=== PATIENT | female | born 1935 | race Caucasian/White ===

== ENCOUNTER 2018-09-26 10:33 | Observation (INO) | payer OTHER ==
[~2018-09-26] VITALS: Ht 152.4 cm; Wt 53.0 kg
[2018-09-26] MEDS ORDERED: GLIP5TAB13 ORAL (11:43)
[2018-09-26] MEDS ORDERED: ATOR10TA65 ORAL (11:43)
[2018-09-26] MEDS ORDERED: AMLO-145 ORAL (11:43)
[2018-09-26] MEDS ORDERED: ASPI-1044 ORAL (11:43)
[2018-09-26] MEDS ORDERED: ALEN70TA5 ORAL (11:43)
[2018-09-26] MEDS ORDERED: LOSA100T15 ORAL (11:43)
--- NOTE | 2018-09-26 12:58 | ERD ---
ER Documentation Chief Complaint Chief Complaint sent by pmd for new onset of a-fib, asymptomatic HPI 83-year-old female who was sent by primary care physician's office found to have new onset atrial fibrillation versus atrial flutter. Patient states that she was in a routine visit for new initiation of primary care provider. The patient had an EKG that showed evidence of atrial flutter. Patient was asymptomatic at the time. Patient has described some palpitations over the last several weeks. Patient denies any fevers chills chest pain or shortness of breath, no pleuritic pain. Patient is asymptomatic currently. History provided and assisted by granddaughter. ROS All systems reviewed and are negative except as per history of present illness. Medications Home Meds Reported Medications Glipizide* (Glipizide*) 5 Mg Tablet, 1 TAB ORAL BID 09/26/18 Alendronate Sodium* (Fosamax*) 70 Mg Tablet, 1 TAB ORAL WEEKLY ON Sundays09/26/18 Losartan Potassium* (Losartan Potassium*) 100 Mg Tablet, 1 TAB ORAL DAILY 09/26/18 Atorvastatin (Atorvastatin) 10 Mg Tablet, 1 TAB ORAL QHS 09/26/18 Aspirin Delayed Release (Aspirin Delayed Release) 81 Mg Tablet.dr, 1 TAB ORAL DAILY 09/26/18 Amlodipine Besylate* (Amlodipine Besylate*) 5 Mg Tablet, 1 TAB ORAL DAILY 09/26/18 Allergies Allergies: Coded Allergies: No Known Allergy (Unverified , 09/26/18) PMhx/Soc Medical and Surgical Hx: pt denies Surgical Hx Hx Cardiac Disorders: Yes (htn) Hx Miscellaneous Medical Probl: Yes (dm, glaucoma ) Hx Alcohol Use: No Hx Substance Use: No Hx Tobacco Use: No Smoking Status: Never smoker FmHx Family History: No diabetes Physical Exam Vitals Vital Signs Date Temp Pulse Resp B/P (MAP) Pulse Ox O2 O2 Flow FiO2 Time Delivery Rate 09/26/18 56 17 157/52 100 Room Air 12:28 (87) 09/26/18 62 17 147/59 100 Room Air 11:18 (88) 09/26/18 98.1 63 18 172/72 98 10:38 (105) Physical Exam General: Well developed, well nourished, no acute distress Head: Normocephalic, atraumatic. Eyes: Pupils equally reactive, EOM intact ENT: Moist mucous membranes Neck: Supple, no lymphadenopathy Respiratory: Lungs clear bilaterally, no distress Cardiovascular: RRR, no murmurs, rubs, or gallops Abdominal: Soft, non-tender, non-distended, no peritoneal signs : Deferred MSK: No edema, no unilateral swelling, 5/5 strength Neurologic: Alert and oriented, moving all extremities, normal speech, no focal weakness, no cerebellar signs Skin: No rash Psych: Normal mood Result Diagram: 09/26/18 1109 09/26/18 1109 Results 24 hrs Laboratory Tests Test 09/26/18 11:09 White Blood Count 5.7 10^3/ul Red Blood Count 3.98 10^6/ul Hemoglobin 12.3 g/dl Hematocrit 37.7 % Mean Corpuscular Volume 94.7 fl Mean Corpuscular Hemoglobin 30.9 pg Mean Corpuscular Hemoglobin Concent 32.6 g/dl Red Cell Distribution Width 12.0 % Platelet Count 115 10^3/UL Mean Platelet Volume 12.5 fl Immature Granulocytes % 0.200 % Neutrophils % 55.1 % Lymphocytes % 35.8 % Monocytes % 8.2 % Eosinophils % 0.5 % Basophils % 0.2 % Nucleated Red Blood Cells % 0.0 /100WBC Immature Granulocytes # 0.010 10^3/ul Neutrophils # 3.2 10^3/ul Lymphocytes # 2.1 10^3/ul Monocytes # 0.5 10^3/ul Eosinophils # 0.0 10^3/ul Basophils # 0.0 10^3/ul Nucleated Red Blood Cells # 0.0 10^3/ul Prothrombin Time 13.0 Sec Prothrombin Time Ratio 1.0 INR International Normalized Ratio 0.97 Activated Partial Thromboplast Time 26.9 Sec Sodium Level 142 mmol/L Potassium Level 4.3 mmol/L Chloride Level 108 mmol/L Carbon Dioxide Level 27 mmol/L Anion Gap 7 Blood Urea Nitrogen 22 mg/dl Creatinine 0.95 mg/dl Est Glomerular Filtrat Rate mL/min mL/min Glucose Level 151 mg/dl Calcium Level 9.6 mg/dl Magnesium Level 2.1 mg/dl Troponin I < 0.012 ng/ml Thyroid Stimulating Hormone (TSH) 0.810 MIU/L Free Thyroxine Index 3.07 ug/ml Thyroxine (T4) 10.4 ug/dl Triiodothyronine (T3) Uptake 29.5 % Current Medications Medications Dose Sig/Laura Start Time Status Last (Trade) Ordered Route PRN Stop Time Admin Dose Reason Admin Ondansetron 4 mg ER BRIDGE 09/26/18 HCl (Zofran PRN IV 13:30 Inj) NAUSEA/VOMITI 09/27/18 13:29 NG 650 mg ER BRIDGE 09/26/18 Acetaminophen PRN PO 13:30 (Tylenol .MILD PAIN 09/27/18 13:29 Tab) 1-3 OR TEMP Procedures/MDM EKG, MONITORS, & DIAGNOSTIC IMAGING: EKG reviewed from clinic: EKG: I reviewed and interpreted a 12-lead EKG. Rhythm: Irregular rhythm, limited baseline but possible flutter waves ST Changes: No contiguous ST segment elevations T waves: No contiguous T wave inversions Impression: Abnormal EKG EKG: I reviewed and interpreted a 12-lead EKG. Rhythm: Normal sinus rhythm ST Changes: No contiguous ST segment elevations T waves: No contiguous T wave inversions Impression: [No evidence of acute cardiac ischemia] Chest x-ray: I reviewed and interpreted a 1 view of the chest Mediastinum: No enlargement Cardiac silhouette: No cardiomegaly Airspace: Clear lung harry bilaterally without evidence of pneumothorax Bones: No evidence of fracture LAB INTERPRETATION: I reviewed the laboratory testing and it shows [no evidence of acute process] MEDICAL DECISION MAKING: Patient presents with what appears to be new onset atrial fibrillation versus atrial flutter. The patient is now spontaneously converted to normal asymptomatic other than describing some palpitations over the last several weeks. This will be a new onset process that would warrant further investigation including echocardiogram, risk stratification for anticoagulation. Further consultation with media relations director is necessary. Given the patient's age and comorbidities, lower threshold for hospitalization. Given the patient was only recently established primary care observation admission for further monitoring, recertification and cardiology consultation seems reasonable. ER COURSE: * Patient continues to be resting comfortably in a normal sinus rhythm here in the emergency room setting. * Patient's CHADS-VAsc is 5 patient stroke risk was 7.2 %/year and greater than 90,000 patient's a 10% risk of stroke TIA or systemic embolism. The patient is likely a good candidate for anticoagulation that can be discussed on an inpatient basis. CONSULTATION: [None] DISPOSITION PLAN: Accepting care team and consultations: I discussed the current laboratory data, diagnostic imaging and emergency care provided. Admitting team: Dr Larry ([facility]) Admitting team indication: Insurance directed Departure Diagnosis: Primary Impression: New onset atrial flutter Additional Impression: Palpitations Condition: Stable RYDER RIVAS MD Sep 26, 2018 12:58
[2018-09-26] MEDS ORDERED: ONDANSETRON 4 MG INJ IV PRN ×2 (13:30→15:00)
[2018-09-26] MEDS ORDERED: ACETAMINOPHEN 325 MG TAB PO PRN ×2 (13:30→15:00)
[2018-09-26] MEDS ORDERED: METOPROLOL 5 MG INJ IV PRN (14:30)
--- NOTE | 2018-09-26 14:31 | QN ---
Documentation Comment Pt seen and examined h and p valenteated EMILY NEWMAN MD Sep 26, 2018 14:31
[2018-09-26] MEDS ORDERED: DOCUSATE SODIUM 100 MG CAP PO PRN (15:00)
[2018-09-26] MEDS ORDERED: NACL 0.9% 3 ML SYG IV SCH (15:00)
[2018-09-26] MEDS ORDERED: GLUCAGON 1 MG INJ IM PRN (15:30)
[2018-09-26] MEDS ORDERED: DEXTROSE 50% 50 ML SYRINGE IV PRN ×2 (15:30)
[2018-09-26] MEDS ORDERED: GLUCOSE GEL 15 GRAM TUBE BUCCAL PRN (15:30)
[2018-09-26] MEDS ORDERED: GLUCOSE GEL 15 GRAM TUBE PO PRN ×2 (15:30)
[2018-09-26 16:50] VITALS: Ht 152.4 cm; Wt 53.0 kg
[2018-09-26 17:01] VITALS: BP 146/67; PULSE 56; RESP 16
--- NOTE | 2018-09-26 17:11 | HP ---
DATE OF ADMISSION: 09/26/2018 REASON FOR ADMISSION: Abnormal EKG. HISTORY OF PRESENT ILLNESS: This is an 83-year-old female with a past medical history of diabetes, h ypertension, hyperlipidemia, who was sent in from the PCP's office for the new onset of atrial fibril lation versus atrial flutter. According to the patient and the family, the patient has been feeling palpitations intermittently on and off for 1 year. Occasionally she has some swelling of the bilate ral lower extremities. She switched her PCP to a new provider. She went to her PCP's office, where they did an EKG and was told that she had atrial flutter and was told to come to the Emergency Room f or further evaluation. The patient denies any chest pain, any shortness of breath. On arrival to ED , vital signs showed blood pressure 137/51, heart rate was 56, afebrile, respiratory rate 17. Labs s howed a BUN 22, creatinine 0.9. Troponin less than 0.012. EKG showed normal sinus rhythm and phylicia downing was admitted for further management. PAST MEDICAL HISTORY: 1. Diabetes since 2004. 2. Hypertension. 3. Hyperlipidemia. 4. Glaucoma. 5. Osteoporosis. ALLERGIES: NONE. PAST SURGICAL HISTORY: Surgery for ingrown toenail. MEDICATIONS: Takin. Amlodipine 5 mg. 2. Atorvastatin 10. 3. Losartan 100. 4. Aspirin 81. 5. Glipizide 5 b.i.d. 6. Fosamax q. weekly. SOCIAL HISTORY: No history of smoking, alcohol or any drug use. Currently lives with family. FAMILY HISTORY: Noncontributory. REVIEW OF SYSTEMS: The patient sometimes complains of swelling of lower extremities. Denies any juan m st pain, any shortness of breath. Denies any abdominal pain, nausea, vomiting, diarrhea, any headach e, any blurry vision. Denied any hematemesis, any melena, any blood per rectum. Denies any focal ne urological deficit. PHYSICAL EXAMINATION: VITAL SIGNS: Currently, blood pressure 137/51, heart rate 76, respirations 18, saturating 100% on ro om air. GENERAL: The patient is awake, alert, oriented, does not appear to be in acute distress. HEENT: Pupils equal, round, reactive to light. NECK: Supple, no JVD. HEART: Regular rate and rhythm. LUNGS: Clear to auscultate bilaterally. ABDOMEN: Soft, nontender, nondistended, positive normoactive bowel sounds. EXTREMITIES: There is 1+ edema on the right lower extremity. DIAGNOSTIC DATA: BUN 22, creatinine 0.95. Troponin less than 0.012. LABORATORY DATA: White count 5.7, hemoglobin 12.3, platelet count 115. INR is 0.97. EKG at the doc tor's office showed atrial flutter. An EKG here showed normal sinus rhythm. ASSESSMENT: This is an 83-year-old female who presented with: 1. New onset atrial flutter manifested by palpitations, currently here EKG is within normal limit. Likely paroxysmal. Patient had CHADS-VASc score 72% per ER. 2. Diabetes. 3. Hypertension. 4. Hyperlipidemia. 5. Osteoporosis. 6. Glaucoma. PLAN: At this period of time, the patient will be admitted to tele. The patient will be continued o n aspirin, statin, beta peter. We will also get an echo. Cardiology will be consulted. Discussio n will be made around regarding anticoagulation. Rest of the treatment will depend on the patient's hospitalization course. Dictated By: EMILY LAWS/MARTIN Conf#: [id number] DID#: [id number]
[2018-09-26] MEDS: INSULIN ASPART [NOVOLOG] 3 ML PEN SC SCH ×2 (18:54→21:30)
[2018-09-26 20:00] VITALS: BP 158/68; PULSE 55; PULSE 62; RESP 18
[2018-09-26 20:50] VITALS: BP 148/72; PULSE 64; RESP 17
[2018-09-26] MEDS: METOPROLOL 25 MG TAB PO SCH (20:54)
[2018-09-26] MEDS ORDERED: ATORVASTATIN 10 MG TAB PO SCH (21:00)
[2018-09-26 23:33] VITALS: BP 141/65; PULSE 60; RESP 18
[2018-09-27] MEDS ORDERED: ACCU-CHEK XX SCH (02:00)
[2018-09-27 04:15] VITALS: BP 150/68; PULSE 64; RESP 19
[2018-09-27 04:46] VITALS: PULSE 39
[2018-09-27] MEDS ORDERED: PANTOPRAZOLE (EC) 40 MG TAB PO SCH (06:00)
[2018-09-27 07:13] VITALS: BP 154/63; PULSE 65; RESP 16
--- NOTE | 2018-09-27 07:41 | CONS ---
DATE OF ADMISSION: 09/26/2018 DATE OF CONSULTATION: 09/26/2018 TYPE OF CONSULTATION: Cardiology. REASON FOR CONSULTATION: Palpitations, possible atrial fibrillation, assess for true cardiac arrhythmia. REQUESTING PHYSICIAN: Janessa Larry MD HISTORY OF PRESENT ILLNESS: Ms. Vania Ramires is a very pleasant 83-year-old female with a history of hypertension, dyslipidemia, diabetes mellitus, glaucoma, who presented to new physician's office with complaints of palpitations. The patient underwent an EKG concerning for possible atrial fibrillation flutter and therefore was sent to the Emergency Department here at [facility] for further evaluation and treatment. Upon arrival, temperature 98.1, blood pressure 172/73, pulse 60, respiration 18, sat 98%. The patient's labs are notable for white count 5.70, hemoglobin 12.3, platelet count 115. Sodium 142, potassium 4.3, creatinine 0.9, BUN of 22. Troponin negative. INR 0.97. The patient underwent a chest x-ray revealing no focal consolidation. Patient's electrocardiogram here now reveals sinus rhythm, rate of 61 with normal axis, normal intervals, isolated T-wave flattening in aVL. The patient denies chest pain, shortness of breath. Does state for the last year she has been having intermittent palpitations. Denies dizziness, syncope. PAST MEDICAL HISTORY: As above in HPI. MEDICATIONS CURRENTLY IN HOSPITAL: 1. Zofran. 2. Tylenol p.r.n. ALLERGIES: NO KNOWN DRUG ALLERGIES. SOCIAL HISTORY: No current tobacco, ETOH or illicit drug use. FAMILY HISTORY: No history of sudden cardiac or early CAD. REVIEW OF SYSTEMS: As above in HPI. CONSTITUTIONAL: No fevers, chills. PULMONARY: No current shortness of breath. CARDIOVASCULAR: No current chest pain, intermittent palpitations. GASTROINTESTINAL: No vomiting. GENITOURINARY: No hematuria. MUSCULOSKELETAL: Degenerative joint disease. PSYCHIATRIC: The patient denies depression. NEUROLOGIC: No documented history of CVA. PHYSICAL EXAMINATION: VITAL SIGNS: Temperature of 98.1, blood pressure 137/51, pulse 76, respiratory rate 18, saturating 100%. GENERAL: The patient is alert, awake, no acute distress. NECK: JVP approximately 8 to 9 cm of water. CHEST: Fair air movement throughout. HEART: Regular rate and rhythm. Normal S1, S2, I/ systolic murmur. Nondisplaced PMI. ABDOMEN: Positive bowel sounds, soft. EXTREMITIES: No significant pitting edema, 1+ pulses, bilateral posterior tibial. LABORATORY DATA: Most recently from today. No further labs for my review at this time. IMAGING STUDIES: As above in HPI. No further imaging studies for my review at this time. ECG: As above in HPI. No further electrocardiograms for my review at this time. IMPRESSION: 1. Possible paroxysmal atrial fibrillation, atrial flutter by outside hospital EKG upon review of this outside hospital EKG, I believe this is more consistent with artifact and the patient's EKG actually reveals a sinus rhythm most likely, as you are able to see a dominant P wave in some of the leads at times, when baseline in not affected by artifact. Continue to follow given the patient's complaints of palpitations. 2. Palpitations by history for the last year and EKG concerning for possible atrial fibrillation. 3. Continue to follow for true rhythmic disorder. 4. Hypertension. 5. Diabetes mellitus. 6. Dyslipidemia. RECOMMENDATIONS: 1. At this time, I would admit patient to telemetry monitoring to follow rhythm and rates closely. 2. We started patient on low dose beta peter and will follow heart rate and blood pressure closely and continue to assess for true rhythm disorder by telemetry. 3. Check a TSH to be sure subclinical hyperthyroidism is not contributing to any bouts of true cardiac arrhythmia or palpitations. 4. 2D echo for this patient's ejection fraction, wall motion and major abnormalities, and complete the patient's rule out for myocardial infarction to ensure the patient's EKG abnormalities are chronic in nature and not due to any acute coronary syndromes. I will check a fasting lipid panel for general risk stratification and adjust the patient's statin therapy as necessary. Thank you for allowing me to take part in the care of this patient. I will continue to follow him closely with you as further recommendations will be made as the patient progresses through her inpatient hospital clinical course. Dictated By: EVARISTO GRANT/MARTIN Conf#: [id number] DID#: [id number] ELEANOR
[2018-09-27] MEDS: INSULIN ASPART [NOVOLOG] 3 ML PEN SC SCH ×2 (07:55→11:34)
[2018-09-27] MEDS ORDERED: ASPIRIN 325 MG TAB PO SCH (09:00)
[2018-09-27] MEDS ORDERED: AMLODIPINE 5 MG TAB PO SCH (09:00)
[2018-09-27] MEDS: METOPROLOL 25 MG TAB PO SCH (09:25)
--- NOTE | 2018-09-27 09:33 | CONS ---
Consult Date/Type/Reason Admit Date/Time Sep 26, 2018 at 13:10 Initial Consult Date Date/Time of Note DATE: 09/27/18 TIME: 09:29 Subjective No acute events - pt in sinus now - feels better now - in good fluid status. Will monitor clinically now. ROS: No fever, no chills, no nausea, no vomiting, no diarrhea/constipation No recent weight changes No chest pain, no PND, no orthopnea - mild SOB No dizziness, blurred vision No thirst, no heat or cold intolerance Objective Vitals Vital Signs Date Temp Pulse Resp B/P (MAP) Pulse Ox O2 O2 Flow FiO2 Time Delivery Rate 09/27/18 97.6 65 16 154/63 97 07:13 (93) 09/26/18 Room Air 23:33 Intake and Output 09/26/18 09/26/18 09/27/18 1515:00 23:00 07:00 IntakeIntake Total 400 ml BalanceBalance 400 ml Exam General: WN/WD/NAD, AOx 3 HEENT: Unicetric/atraumatic/EOMI (follow commands) NECK: JVD elevated, no thyromegaly Lymph: no lymphadenopathy HEART: regular with no S3, II/ systolic murmur at apex - mild SOB LUNGS: Coarse sounds ABD: soft, NT, ND, +BS : Intact Neuro: non focal SKIN: chronic changes EXT: trace edema Results/Medications Result Diagram: 09/26/18 1109 09/27/18 0555 Results 24 hrs Laboratory Tests Test 09/26/18 11:09 09/26/18 17:03 09/26/18 17:41 09/26/18 18:48 White Blood Count 5.7 Red Blood Count 3.98 L Hemoglobin 12.3 Hematocrit 37.7 Mean Corpuscular 94.7 Volume Mean Corpuscular 30.9 Hemoglobin Mean Corpuscular 32.6 Hemoglobin Concent Red Cell 12.0 Distribution Width Platelet Count 115 L Mean Platelet Volume 12.5 H Immature 0.200 Granulocytes % Neutrophils % 55.1 Lymphocytes % 35.8 Monocytes % 8.2 Eosinophils % 0.5 Basophils % 0.2 Nucleated Red Blood 0.0 Cells % Immature 0.010 Granulocytes # Neutrophils # 3.2 Lymphocytes # 2.1 Monocytes # 0.5 Eosinophils # 0.0 Basophils # 0.0 Nucleated Red Blood 0.0 Cells # Prothrombin Time 13.0 Prothrombin Time 1.0 Ratio INR International 0.97 Normalized Ratio Activated 26.9 Partial Thromboplast Time Sodium Level 142 Potassium Level 4.3 Chloride Level 108 Carbon Dioxide Level 27 Anion Gap 7 Blood Urea Nitrogen 22 H Creatinine 0.95 Est Glomerular Filtrat Rate mL/min Glucose Level 151 Calcium Level 9.6 Magnesium Level 2.1 Troponin I < 0.012 < 0.012 Thyroid Stimulating 0.850 Hormone (TSH) Free Thyroxine Index 3.07 Thyroxine (T4) 10.4 Triiodothyronine 29.5 (T3) Uptake Creatine Kinase 102 Creatine Kinase 0.5 Index Creatinine Kinase MB 0.48 (Mass) Bedside Glucose 157 179 Test 09/26/18 20:56 09/26/18 22:47 09/27/18 01:13 09/27/18 05:55 Bedside Glucose 206 140 Creatine Kinase 115 Creatine Kinase 0.6 Index Creatinine Kinase MB 0.66 (Mass) Troponin I < 0.012 Sodium Level 142 Potassium Level 4.3 Chloride Level 108 Carbon Dioxide Level 26 Anion Gap 8 Blood Urea Nitrogen 22 H Creatinine 0.82 Est Glomerular Filtrat Rate mL/min Glucose Level 120 Calcium Level 9.2 Triglycerides Level 71 Cholesterol Level 116 LDL Cholesterol, 51 Calculated HDL Cholesterol 51 Cholesterol/HDL 2.2 Ratio Test 09/27/18 08:06 Bedside Glucose 134 Home Meds Reported Medications Glipizide* (Glipizide*) 5 Mg Tablet, 1 TAB ORAL BID 09/26/18 Alendronate Sodium* (Fosamax*) 70 Mg Tablet, 1 TAB ORAL WEEKLY ON Sundays09/26/18 Losartan Potassium* (Losartan Potassium*) 100 Mg Tablet, 1 TAB ORAL DAILY 09/26/18 Atorvastatin (Atorvastatin) 10 Mg Tablet, 1 TAB ORAL QHS 09/26/18 Aspirin Delayed Release (Aspirin Delayed Release) 81 Mg Tablet.dr, 1 TAB ORAL DAILY 09/26/18 Amlodipine Besylate* (Amlodipine Besylate*) 5 Mg Tablet, 1 TAB ORAL DAILY 09/26/18 Medications Current Medications Metoprolol Tartrate (Lopressor) 12.5 mg BID PO Last administered on 09/27/18at 09:25; Admin Dose 12.5 MG; Start 09/26/18 at 21:00 Metoprolol Tartrate (Lopressor) 5 mg Q4H PRN IV HR>110 Hold SBP<100; Start 09/26/18 at 14:30 Aspirin (Aspirin) 325 mg DAILY PO Last administered on 09/27/18at 09:24; Admin Dose 325 MG; Start 09/27/18 at 09:00 Amlodipine Besylate (Norvasc) 5 mg DAILY PO Last administered on 09/27/18at 09:25; Admin Dose 5 MG; Start 09/27/18 at 09:00 Atorvastatin Calcium (Lipitor) 10 mg QHS PO Last administered on 09/26/18at 20:52; Admin Dose 10 MG; Start 09/26/18 at 21:00 IV Flush (NS 3 ml) 3 ml PER PROTOCOL IV ; Start 09/26/18 at 15:00 Ondansetron HCl (Zofran Inj) 4 mg Q6H PRN IV NAUSEA/VOMITING; Start 09/26/18 at 15:00 Acetaminophen (Tylenol Tab) 650 mg Q6H PRN PO .PAIN 1-3 OR TEMP; Start 09/26/18 at 15:00 Docusate Sodium (Colace) 100 mg Q12H PRN PO .CONSTIPATION; Start 09/26/18 at 15:00 Pantoprazole (Protonix Tab) 40 mg DAILY@06 PO Last administered on 09/27/18at 05:19; Admin Dose 40 MG; Start 09/27/18 at 06:00 Diagnostic Test (Pha) (Accu-Chek) 1 ea 02 XX Last administered on 09/27/18at 01:18; Admin Dose 1 EA; Start 09/27/18 at 02:00 Insulin Aspart (Novolog Insulin Pen) NOVOLOG *MILD* ALGORITHM WITH MEALS BEDTIME SC Last administered on 09/26/18at 21:30; Admin Dose 1 UNIT; Start 09/26/18 at 17:55 Miscellaneous Information 1 ea NOTE XX ; Start 09/26/18 at 15:30 Glucose (Glutose) 15 gm Q15M PRN PO DECREASED GLUCOSE; Start 09/26/18 at 15:30 Glucose (Glutose) 22.5 gm Q15M PRN PO DECREASED GLUCOSE; Start 09/26/18 at 15:30 Dextrose (D50w Syringe) 25 ml Q15M PRN IV DECREASED GLUCOSE; Start 09/26/18 at 15:30 Dextrose (D50w Syringe) 50 ml Q15M PRN IV DECREASED GLUCOSE; Start 09/26/18 at 15:30 Glucagon (Glucagen) 1 mg Q15M PRN IM DECREASED GLUCOSE; Start 09/26/18 at 15:30 Glucose (Glutose) 15 gm Q15M PRN BUCCAL DECREASED GLUCOSE; Start 09/26/18 at 15:30 Assessment/Plan Hospital Course (Demo Recall) 1. Possible paroxysmal atrial fibrillation, atrial flutter by outside hospital EKG upon review of this outside hospital EKG, I believe this is more consistent with artifact and the patient's EKG actually reveals a sinus rhythm most likely, as you are able to see a dominant P wave in some of the leads at times, when baseline in not affected by artifact. Continue to follow given the patient's complaints of palpitations. Rate controlled - now in sinus. 2. Palpitations by history for the last year - sinus now, con;'t telemetry monitoring for true rhythmic disorder. 4. Hypertension - BP on high side - arr Rx now. 5. Diabetes mellitus - on meds - keep euglycemic. 6. Dyslipidemia - Rx to goal. GAYLA MCDANIEL MD Sep 27, 2018 09:33
[2018-09-27] MEDS ORDERED: LOSARTAN 25 MG TAB PO SCH (10:00)
--- NOTE | 2018-09-27 10:58 | PDOCDIS ---
Discharge Instructions DIAGNOSIS Discharge Diagnosis PAROXYSMAL A flutter? per cards CONDITION [id number] Patient Condition: [id number] Fair HOME CARE INSTRUCTIONS: [id number] Diet Instructions: [id number] Low Fat /Cholesterol ACTIVITY: [id number] Activity Restrictions: [id number] Slowly Increase Activity Rest between Activity Avoid heavy lifting FOLLOW UP/APPOINTMENTS Follow-up Plan fu PCP in 1 week fu cards in 1-2 weeks take pepcis with high dose ASA EMILY NEWMAN MD Sep 27, 2018 10:58
[2018-09-27] MEDS ORDERED: ASPI325T29 PO (11:01)
[2018-09-27] MEDS ORDERED: FAMO20TA18 PO (11:01)
[2018-09-27 11:17] VITALS: BP 179/77; PULSE 54; RESP 19
[2018-09-27 13:33] VITALS: BP 113/65; PULSE 52
--- NOTE | 2018-09-27 14:27 | RADRPT ---
Echocardiogram Report Patient Name: ALEK LEDBETTER MPatient ID: [id number] : 1935 (83y 6m)Study Date: 09/27/2018 7:44:10 AM Gender: FAccession #: [id number] Tech: WaleskaCiara Abebe [facility] Location: [facility] Ref.Physician: EVARISTO SONI Height(Cm): BSA: Weight(Kg): Quality: AdequateOrder Physician: EVARISTO SONI Account #: Procedures: Echocardiographic Report: Transthoracic echocardiogram with complete 2D, M-Mode, and doppler examination. Indications: Palpitations. Measurements: 2D/M Mode Doppler Measurement Value Normal Range Measurement Value Normal Range LVIDd 2D 4.3 [ 3.8 - 5.2 ] cm AV Peak Taye 1.2 [ 100.0 - 170.0 ] cm/sec LVIDs 2D 2.2 [ 2.2 - 3.5 ] cm AV Peak PG 6.0 [ 2.0 - 9.0 ] mmHg LVPWd 2D 0.9 [ 0.6 - 0.9 ] cm LVOT Peak Taye 0.9 [ 70.0 - 110.0 ] cm/sec IVSd 2D 0.9 [ 0.6 - 0.9 ] cm LVOT Peak PG 3.0 [ 2.0 - 6.0 ] mmHg AoR Diam 2D 2.5 [ 2.3 - 3.1 ] cm MV E Peak Taye 0.8 [ 60.0 - 130.0 ] cm/sec EDV 2D 81.7 [ 46.0 - 106.0 ] ml MV A Peak Taye 1.0 [ 100.0 - 120.0 ] cm/sec ESV 2D 16.4 [ 14.0 - 42.0 ] ml MV E/A 0.8 [ 0.8 - 1.5 ] ratio EF 2D 79.9 [ 54.0 - 74.0 ] percent MV Decel Time 204 [ 104 - 258 ] msec LA Dimen 2D 2.9 [ 2.7 - 3.8 ] cm Lat E` Atye 0.1 [ 10.0 - 15.0 ] cm/sec Lateral E/E` 9.2 [ 1.0 - 2.0 ] ratio Med E` Taye 0.1 cm/sec MV E/A 0.8 [ 0.8 - 1.5 ] ratio TR Peak Taye 2.7 [ 100.0 - 280.0 ] cm/sec TR Peak PG 30.0 mmHg RVSP 33.0 [ 10.0 - 36.0 ] mmHg RA Pressure 3.0 mmHg Findings: Left Ventricle: Normal left ventricular systolic function. Normal left ventricular cavity size. Normal left ventricular wall thickness. Ejection fraction is visually estimated at 65 %. Tissue Doppler/Mitral Doppler indices are consistent with impaired relaxation (Stage I diastolic dysfunction). Right Ventricle: Normal right ventricular size. Normal right ventricular systolic function. Left Atrium: The left atrium is normal in size. Right Atrium: The right atrium is normal in size. Mitral Valve: Normal appearance and function of the mitral valve with trace physiologic regurgitation. Aortic Valve: No significant aortic stenosis or insufficiency. Aortic cusps appear mildly calcified. Tricuspid Valve: Normal appearance and function of the tricuspid valve with trace physiologic regurgitation. Normal right ventricular systolic pressure. Pulmonic Valve: Normal pulmonic valve appearance. Pericardium: Normal pericardium with no significant pericardial effusion. Aorta: Normal aortic root. IVC: Normal size and normal respiratory collapse consistent with normal right atrial pressure. Conclusions: Normal left ventricular systolic function. Normal left ventricular cavity size. Normal left ventricular wall thickness. Ejection fraction is visually estimated at 65 %. Tissue Doppler/Mitral Doppler indices are consistent with impaired relaxation (Stage I diastolic dysfunction). Normal appearance and function of the mitral valve with trace physiologic regurgitation. No significant aortic stenosis or insufficiency. Aortic cusps appear mildly calcified. Normal appearance and function of the tricuspid valve with trace physiologic regurgitation. Normal right ventricular systolic pressure. Electronically Signed By: Abilio Lassiter 2018-09-27 14:26:53 PDT
--- NOTE | 2018-09-27 15:23 | DS ---
DATE OF ADMISSION: 09/26/2018 DATE OF DISCHARGE: 09/27/2018 HISTORY OF PRESENT ILLNESS AND HOSPITAL COURSE: This is an 83-year-old female with past medical hist ory of diabetes, hypertension, hyperlipidemia, was sent from PCP's office for possible new onset of a trial fibrillation versus flutter. According to the patient and the family, the patient had been hav ing palpitations intermittently on and off for 1 year. Occasionally she had some swelling of the francisco ateral extremities. She went to PCP's office, they did an EKG and was told she had atrial flutter, w as told to come to the Emergency Department for further evaluation. The patient denied any chest jovani n, any shortness of breath. On admission, the patient had troponin, which was less than 0.012. EKG showed normal sinus rhythm. The patient was admitted to a telemetry floor. The patient had serial t roponins that were negative. The patient also had a lower extremity ultrasound which was negative fo r DVT. Also had chest x-ray that showed no focal consolidation. The patient was seen by cardiology consult with Dr. Edmond. A TSH was checked which is negative. Patient was started on low dose beta peter; however, is a little bradycardic. The beta peter was stopped. According to cardiology, there was possibility of paroxysmal atrial fibrillation and flutter. However, upon review of outside hospital EKG, it was more consistent with artifact. EKG initially reveals a sinus rhythm with domin ant waves, so spoke to Dr. Quezada who was covering for Dr. Edmond the next day=, ideal would be to k eep the patient on aspirin 325 and follow with them as an outpatient and they can decide thereafter. Daughters were explained about the patient diagnosis, patient was feeling better and heart rate was in 50s to 60s with sinus and currently stable to be discharged home per Dr. Quezada. FINAL DISCHARGE DIAGNOSES: 1. Possible paroxysmal atrial fibrillation, or atrial flutter by outside hospital EKG. Upon review, cardiology felt was consistent with artifact. The patient's EKG actually reveals a sinus rhythm. M ost likely they were dominant P waves, palpitations by history by last year. 2. Hypertension. 3. Diabetes. 4. Dyslipidemia. 5. History of osteoporosis. 6. History of glaucoma. DISCHARGE CONDITION: Stable. DISCHARGE DIET: Two-gram sodium. DISCHARGE MEDICATIONS: 1. Aspirin 325 p.o. every day. 2. Pepcid 20 mg to be taken p.r.n. 3. Fosamax 1 tab oral weekly. 4. Norvasc 5 mg p.o. daily. 5. Atorvastatin 10 mg at bedtime. 6. Glipizide 5 b.i.d. 7. Losartan 100 every day. 8. Aspirin 81 mg was stopped and metoprolol was held because of some bradycardia. Patient will foll ow up with the PCP in 1 to 2 weeks, cardiology in 2 to 3 weeks. The patient also had an echocardiogr am done that showed normal left ventricular systolic function, EF of 65%. Dictated By: EMILY LAWS/MARTIN Conf#: [id number] DID#: [id number]
--- NOTE | 2018-10-03 09:21 | RADRPT ---
Vent Rate: 52 bpm RR Interval: 1148 msec NC Interval: 176 msec QRS Duration: 68 msec QT Interval: 436 msec QTC Interval: 407 msec P-R-T [place]: 76 - 53 - 58 degrees Sinus Bradycardia Electronically Signed By: Hernesto Raymundo
== END 2018-09-27 16:18 | disposition home or self-care (01) ==
LOC: E/R 10:33 → TEL 13:10
PROVIDERS: ADMIT Internal Medicine; ATTEND Internal Medicine
DX: R00.2 Palpitations (principal); I10 Essential (primary) hypertension; E11.9 Type 2 diabetes mellitus without complications; M81.0 Age-related osteoporosis without current pathological fracture; E78.5 Hyperlipidemia, unspecified; Z79.84 Long term (current) use of oral hypoglycemic drugs
CPT/HCPCS: 36415; 71045; 80048; 80061; 82550; 82553; 82962; 83735; 84436; 84443; 84479; 84484; 85025; 85610; 85730; 93005; 93306; 93971; J1815; Z7500; Z7502; Z7610; G0378